=== PATIENT | male | born 1980 | race Caucasian/White ===

== ENCOUNTER → 2017-01-04 | Outpatient (CLI) | payer BC, OTHER ==
[2017-01-04 18:20] LABS: BLOOD UREA NITROGEN 13 mg/dl (7-18); BUN/CREATININE RATIO 13.3 (10-20); CALCIUM 8.8 mg/dl (8.5-10.1); CARBON DIOXIDE 25 mmol/L (21-32); CHLORIDE 106 mmol/L (98-107); CHOLESTEROL 232 mg/dl (0-200); CREATININE 0.96 mg/dl (0.60-1.40); GLUCOSE 99 mg/dl (70-99); POTASSIUM 3.7 mmol/L (3.5-5.1); SODIUM 139 mmol/L (136-145)
[2017-01-04 18:23] LABS: CHOLESTEROL/HDL RATIO 6.4; HDL CHOLESTEROL 36 mg/dl; TRIGLYCERIDES 517 mg/dl (0-150)
== END | disposition home or self-care (01) ==
LOC: C.LABPVFM 13:24
PROVIDERS: ATTEND Family Medicine
DX: E55.9 Vitamin D deficiency, unspecified (principal); E78.2 Mixed hyperlipidemia

== ENCOUNTER → 2017-03-16 | Outpatient (CLI) | payer BC | END | disposition home or self-care (01) | LOC: C.LABPVFM 10:26 | PROVIDERS: ATTEND Nurse Practitioner Family | DX: E55.9 Vitamin D deficiency, unspecified (principal) ==

== ENCOUNTER 2017-06-10 13:36 | Emergency (ER) | payer BC, OTHER ==
[~2017-06-10] VITALS: Ht 170.2 cm; Wt 107.0 kg
[2017-06-10 13:51] VITALS: TEMP 36.8; Ht 170.2 cm; Wt 107.0 kg
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
[2017-06-10] MEDS ORDERED: VNTHFA/IN INH (14:36)
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
[2017-06-10] MEDS ORDERED: CYCL5TAB PO (15:14)
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
[2017-06-10 15:23] VITALS: BP 147/73; PULSE 83; O2SAT 95
== END 2017-06-10 15:21 | disposition home or self-care (01) ==
LOC: C.EDB 13:37
DX: S09.90XA Unspecified injury of head, initial encounter (principal); S40.012A Contusion of left shoulder, initial encounter; V47.5XXA Car driver injured in collision with fixed or stationary object in traffic accident, initial encounter; Y92.410 Unspecified street and highway as the place of occurrence of the external cause; J45.909 Unspecified asthma, uncomplicated; E78.5 Hyperlipidemia, unspecified; F32.9 Major depressive disorder, single episode, unspecified; F17.210 Nicotine dependence, cigarettes, uncomplicated; F17.220 Nicotine dependence, chewing tobacco, uncomplicated

== ENCOUNTER → 2017-11-02 | Outpatient (CLI) | payer BC ==
[~2017-11-02] MED LIST: VNTHFA/IN INH
--- NOTE | 2017-11-02 16:18 | DIAGNOSTIC IMAGING REPORT ---
LEFT SHOULDER 3 VIEWS HISTORY: Left shoulder painleft COMPARISON: Left shoulder 06/10/2017. FINDINGS: There is no fracture or dislocation. Soft tissues are unremarkable. The left clavicle is intact. The AC joint is well aligned. IMPRESSION: Unremarkable left shoulder. Electronically signed by: Nelson Casey M.D. 11/02/2017 4:17 PM Dictated Date/Time: 11/02/2017 4:16 PM
== END | disposition home or self-care (01) ==
LOC: C.RADPV 16:03
PROVIDERS: ATTEND Family Medicine
DX: M25.512 Pain in left shoulder (principal)

== ENCOUNTER 2020-03-12 09:11 | Inpatient (IN) ==
[2020-03-12] MEDS ORDERED: ALBUTEROL HFA 8 GM INHALER INH ONE (09:35)
[2020-03-12] MEDS ORDERED: methylPREDNISolone 125 MG/2 ML VIAL IV STA (09:35)
[2020-03-12] MEDS ORDERED: ONDANSETRON INJ 2 MG/ML 2 ML VIAL IV STA (09:35)
--- NOTE | 2020-03-12 09:40 | Emergency Department Note ---
Impression & Plan Hypoxia, Acute bronchitis, Tachycardia, Exacerbation of asthma ED Provider Note NAME: AIDEN STUBBS AGE: 39 SEX: M : 1980 ARRIVES VIA: Walk-In INFORMANT: [Patient] ED PROVIDER(S): [Allen Flaherty MD] CHIEF COMPLAINT: Cough and shortness of breath HISTORY OF PRESENT ILLNESS: The patient is a 39-year-old male who presents to the ED with 2 to 3 days of cough and shortness of breath. He has had 2 days of vomiting. No diarrhea. No loss of taste or smell. No fever, no sore throat. No known coronavirus exposures. 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 The patient does have asthma, he is out of his albuterol inhaler. He states his cough is sometimes productive, he hears himself wheeze when he coughs. REVIEW OF SYSTEMS: See HPI for pertinent positives and negatives. A total of ten systems were reviewed and were otherwise negative. PMHx/PSHx: See Below SOCIAL HISTORY: See Below. PHYSICAL EXAM: GENERAL: Patient is in no acute distress. HEENT: No acute trauma, normocephalic atraumatic, mucous membranes moist, no nasal congestion, no scleral icterus. No throat erythema or exudate. NECK: No stridor, no adenopathy, no meningismus, trachea is midline. LUNGS: He does have a productive cough noted. He wheezes when he coughs. Lungs are otherwise clear and equal bilaterally. HEART: Tachycardic, regular rhythm. No murmurs. ABDOMEN: Soft, nontender, bowel sounds positive, no hernias, no peritonitis. EXTREMITIES: No cyanosis or edema, full range of motion of all the joints with out pain or difficulty, no signs for acute trauma. NEUROLOGIC: Oriented x 3, no acute motor or sensory deficits, no focal weakness. SKIN: No rash, no jaundice, no diaphoresis. DIFFERENTIAL DIAGNOSIS: Sepsis, UTI, pneumonia, metabolic, electrolyte abnormalities, bronchitis, co ronavirus, influenza, asthma exacerbation, cardiac sources, intracerebral event, toxicologic, neurologic, as well as other pathologies. EMERGENCY DEPARTMENT COURSE/PROCEDURES: ECG: Indication was shortness of breath. The ECG shows a sinus tachycardia with a rate of 111. There is no ST elevation, no PVCs. The QTc is 437. Continuous Cardiac Monitoring: An order was placed for continuous cardiac monitoring. The monitor shows a rate of 104 with sinus tachycardia. Critical Care Note: I have personally spent 35 minutes of critical care time in the direct management of this patient. This includes bedside care, interpretation of diagnostic studies, and testing, discussion with consultants, patient, and family members, and other required patient management activities. This 35 minutes is in excess of all separately billable procedures. MEDICAL DECISION MAKING: There is a moderate leukocytosis at 17,000, this could be consistent with infection. There is no anemia. There is a normal platelet count. No coagulopathy. No significant electrolyte abnormality or kidney failure. No worrisome liver enzyme elevation. ECG shows a sinus tachycardia no acute ischemia. Cardiac enzyme testing x1 is not consistent with acute cardiac injury. Influenza and Covid testing is negative. Chest film shows some generalized parenchymal congestion, no focal pneumonia. On my exam, patient was wheezing, he was tachycardic. The patient received albuterol via MDI. He was eventually given a DuoNeb once his Covid returned negative. He was given 1.5 L of IV saline, 4 mg of IV Zofr an. He received 2 g of IV ceftriaxone as empiric antibiotic coverage. He was given 125 mg of IV Solu-Medrol. Patient was noted to be hypoxic with a sat around 85%. He was placed on 2 L of nasal cannula oxygen. The patient's vital signs have improved since treatment in our ED. Given the hypoxia, given the leukocytosis, his tachycardia and wheezing, I do think a hospital stay is warranted. The patient appears to have an acute bronchitis/early pneumonia with a flare of his asthma. I did speak with the patient about his findings, case management was contacted. The on-call hospitalist has been consulted. Past Med/Surg History Medical History Allergies Asthma History of perforated ear drum Surgical History (Updated 06/22/19 @ 15:28 by YOAN Leon) Bilateral patent pressure equalization tubes Family History (Updated 03/12/20 @ 12:00 by Ricci Madera) Grandfather (Paternal) Aortic aneurysm Mother , accidental overdose Rheumatoid arthritis Denies family history of Ovarian cancer Prostate cancer Myocardial infarction Breast cancer Colorectal cancer Asthma Social History Smoking Status: Current every day smoker Age Started Using Tobacco: 7; packs per day: 0; Years Smoked: 32; Cigarettes Per Day: 5; Second Hand Exposure: Yes; Hx Alcohol Use: Yes Alcohol type: beer Hx Substance Use: No Preferred Language: Luxembourgish Visual Impairment: No Limitations Hearing Ability: Normal marital status: Single Current Living Situation: Significant Other 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 How many Children do You have: 0 Feels Safe at Home: Yes Dental Care, Regularly: No Physical Activity Frequency: Daily Seatbelt Use: never Sunscreen Use: No Allergies Allergies Allergy/AdvReac Type Severity Reaction Status Date / Time codeine Allergy Intermediate HIVES Unverified 03/12/20 09:50 Home Meds Previous Rx's Medication Instructions Recorded albuterol sulfate 90 mcg/actuation 2 puffs INH QID PRN #6.7 gm 06/22/19 aerosol inhaler Results & Data (ED) Vital Signs Vital Signs - 24 hr 03/12/20 09:23 03/12/20 09:56 03/12/20 09:57 Temperature 37.1 C Temperature Source Oral Pulse Rate 125 H 108 H Pulse Rate [Apical] Pulse Rate from SpO2 Sensor 108 H Respiratory Rate 16 Respiratory Effort / Characteristics Non-Labored Blood Pressure 164/102 H 115/70 Blood Pressure Mean 122 85 Pulse Oximetry 96 95 95 Oxygen Delivery Method Room Air Room Air Oxygen Flow Rate Sepsis Recent Fever Within 48 Hours No Sepsis New/Unexplained Change in Mental Status N/A Sepsis Action Taken by Nursing No Action Required 03/12/20 09:59 03/12/20 10:00 03/12/20 10:30 Temperature Temperature Source Pulse Rate 105 H 103 H 110 H Pulse Rate [Apical] Pulse Rate from SpO2 Sensor 106 H 101 H 111 H Respiratory Rate 15 21 Respiratory Effort / Characteristics Blood Pressure 113/73 102/82 Blood Pressure Mean 83 88 Pulse Oximetry 94 96 93 Oxygen Delivery Method Oxygen Flow Rate Sepsis Recent Fever Within 48 Hours Sepsis New/Unexplained Change in Mental Status Sepsis Action Taken by Nursing 03/12/20 10:55 03/12/20 11:00 03/12/20 11:10 Temperature Temperature Source Pulse Rate Pulse Rate [Apical] Pulse Rate from SpO2 Sensor 104 H Respiratory Rate Respiratory Effort / Characteristics Blood Pressure 132/64 Blood Pressure Mean 76 Pulse Oximetry 85 L 88 L 96 Oxygen Delivery Method Room Air Nasal Cannula Oxygen Flow Rate 2 Sepsis Recent Fever Within 48 Hours Sepsis New/Unexplained Change in Mental Status Sepsis Action Taken by Nursing 03/12/20 11:21 Temperature Temperature Source Pulse Rate Pulse Rate [Apical] 105 H Pulse Rate from SpO2 Sensor Respiratory Rate 17 Respiratory Effort / Characteristics Non-Labored Spontaneous Blood Pressure Blood Pressure Mean Pulse Oximetry 95 Oxygen Delivery Method Nasal Cannula Oxygen Flow Rate 2 Sepsis Recent Fever Within 48 Hours Sepsis New/Unexplained Change in Mental Status Sepsis Action Taken by [facility] Medications Current Medication List: was personally reviewed by me Laboratory Data Attestation: I reviewed the patient's lab results. Result diagrams: 03/12/20 09:59 03/12/20 09:59 Lab Results 03/12/20 03/12/20 03/12/20 Range/Units 09:59 09:59 09:59 WBC 17.44 H (4.8-10.8) K/uL RBC 4.88 (4.7-6.1) M/uL Hgb 14.7 (14.0-18.0) g/dL Hct 43.7 (42-52) % MCV 89.5 (80-100) fL MCH 30.1 (25-34) pg MCHC 33.6 (32-36) g/dL RDW Std Deviation 45.8 (36.4-46.3) fL RDW Coeff of Sully 14.0 (11.5-14.5) % Plt Count 277 (130-400) K/uL MPV 10.7 H (7.4-10.4) fL Immature Gran % (Auto) 0.5 % Neut % (Auto) 69.3 % Lymph % (Auto) 18.7 % [place] % (Auto) 7.6 % Eos % (Auto) 3.6 % Baso % (Auto) 0.3 % Neut # (Auto) 12.10 H (1.4-6.5) K/uL Lymph # (Auto) 3.26 (1.2-3.4) K/uL [place] # (Auto) 1.32 H (0.11-0.59) K/uL Eos # (Auto) 0.62 H (0-0.5) K/uL Baso # (Auto) 0.05 (0-0.2) K/uL Immature Gran # (Auto) 0.09 H (0.00-0.02) K/uL PT 10.0 (9.0-12.0) Seconds INR 0.9 (0.9-1.1) APTT 28.2 (21.0-31.0) Seconds PTT Ratio 1.0 Sodium 138 (136-145) mmol/L Potassium 4.1 (3.5-5.1) mmol/L Chloride 104 (98-107) mmol/L Carbon Dioxide 25 (21-32) mmol/L Anion Gap 9.0 (3-11) BUN 17 (7-18) mg/dl Creatinine 0.92 (0.6-1.4) mg/dl Est Cr Clr Drug Dosing 125.1 ml/min Est GFR ( Amer) 120.2 Est GFR (Non-Af Amer) 103.7 BUN/Creatinine Ratio 18.3 (10-20) Glucose 120 H (70-99) mg/dl Lactate (0.4-2.0) mmol/L Calcium 9.6 (8.5-10.1) mg/dl Magnesium 2.1 (1.8-2.4) mg/dl Total Bilirubin 0.2 (0.2-1) mg/dl AST 47 H (15-37) U/L ALT 69 (12-78) U/L Alkaline Phosphatase 82 (45-117) U/L Troponin I < 0.015 (0-0.045) ng/ml Total Protein 7.4 (6.4-8.2) gm/dl Albumin 3.5 (3.4-5.0) gm/dl Globulin 3.9 (2.5-4.0) gm/dl Albumin/Globulin Ratio 0.9 (0.9-2) Procalcitonin (0-0.5) ng/ml Specimen Hemolysis COVID-19 Eval Order Influ A Molecular Assay (Negative) Influ B Molecular Assay (Negative) SARS-CoV-2, RNA, NAAT (NEGATIVE) 03/12/20 03/12/20 03/12/20 Range/Units 09:59 09:59 09:59 WBC (4.8-10.8) K/uL RBC (4.7-6.1) M/uL Hgb (14.0-18.0) g/dL Hct (42-52) % MCV (80-100) fL MCH (25-34) pg MCHC (32-36) g/dL RDW Std Deviation (36.4-46.3) fL RDW Coeff of Sully (11.5-14.5) % Plt Count (130-400) K/uL MPV (7.4-10.4) fL Immature Gran % (Auto) % Neut % (Auto) % Lymph % (Auto) % [place] % (Auto) % Eos % (Auto) % Baso % (Auto) % Neut # (Auto) (1.4-6.5) K/uL Lymph # (Auto) (1.2-3.4) K/uL [place] # (Auto) (0.11-0.59) K/uL Eos # (Auto) (0-0.5) K/uL Baso # (Auto) (0-0.2) K/uL Immature Gran # (Auto) (0.00-0.02) K/uL PT (9.0-12.0) Seconds INR (0.9-1.1) APTT (21.0-31.0) Seconds PTT Ratio Sodium (136-145) mmol/L Potassium (3.5-5.1) mmol/L Chloride (98-107) mmol/L Carbon Dioxide (21-32) mmol/L Anion Gap (3-11) BUN (7-18) mg/dl Creatinine (0.6-1.4) mg/dl Est Cr Clr Drug Dosing ml/min Est GFR ( Amer) Est GFR (Non-Af Amer) BUN/Creatinine Ratio (10-20) Glucose (70-99) mg/dl Lactate (0.4-2.0) mmol/L Calcium (8.5-10.1) mg/dl Magnesium (1.8-2.4) mg/dl Total Bilirubin (0.2-1) mg/dl AST (15-37) U/L ALT (12-78) U/L Alkaline Phosphatase (45-117) U/L Troponin I (0-0.045) ng/ml Total Protein (6.4-8.2) gm/dl Albumin (3.4-5.0) gm/dl Globulin (2.5-4.0) gm/dl Albumin/Globulin Ratio (0.9-2) Procalcitonin < 0.05 (0-0.5) ng/ml Specimen Hemolysis COVID-19 Eval Order Influ A Molecular Assay Negative (Negative) Influ B Molecular Assay Negative (Negative) SARS-CoV-2, RNA, NAAT (NEGATIVE) 03/12/20 03/12/20 Range/Units 09:59 09:59 WBC (4.8-10.8) K/uL RBC (4.7-6.1) M/uL Hgb (14.0-18.0) g/dL Hct (42-52) % MCV (80-100) fL MCH (25-34) pg MCHC (32-36) g/dL RDW Std Deviation (36.4-46.3) fL RDW Coeff of Sully (11.5-14.5) % Plt Count (130-400) K/uL MPV (7.4-10.4) fL Immature Gran % (Auto) % Neut % (Auto) % Lymph % (Auto) % [place] % (Auto) % Eos % (Auto) % Baso % (Auto) % Neut # (Auto) (1.4-6.5) K/uL Lymph # (Auto) (1.2-3.4) K/uL [place] # (Auto) (0.11-0.59) K/uL Eos # (Auto) (0-0.5) K/uL Baso # (Auto) (0-0.2) K/uL Immature Gran # (Auto) (0.00-0.02) K/uL PT (9.0-12.0) Seconds INR (0.9-1.1) APTT (21.0-31.0) Seconds PTT Ratio Sodium (136-145) mmol/L Potassium (3.5-5.1) mmol/L Chloride (98-107) mmol/L Carbon Dioxide (21-32) mmol/L Anion Gap (3-11) BUN (7-18) mg/dl Creatinine (0.6-1.4) mg/dl Est Cr Clr Drug Dosing ml/min Est GFR ( Amer) Est GFR (Non-Af Amer) BUN/Creatinine Ratio (10-20) Glucose (70-99) mg/dl Lactate (0.4-2.0) mmol/L Calcium (8.5-10.1) mg/dl Magnesium (1.8-2.4) mg/dl Total Bilirubin (0.2-1) mg/dl AST (15-37) U/L ALT (12-78) U/L Alkaline Phosphatase (45-117) U/L Troponin I (0-0.045) ng/ml Total Protein (6.4-8.2) gm/dl Albumin (3.4-5.0) gm/dl Globulin (2.5-4.0) gm/dl Albumin/Globulin Ratio (0.9-2) Procalcitonin (0-0.5) ng/ml Specimen Hemolysis COVID-19 Eval [facility] Influ A Molecular Assay (Negative) Influ B Molecular Assay (Negative) SARS-CoV-2, RNA, NAAT NEGATIVE (NEGATIVE) Administered Medications Discontinued Medications Albuterol (Albuterol Hfa 8 Gm Inhaler) 4 puffs INH NOW ONE Stop: 03/12/20 09:36 Last Admin: 03/12/20 10:04 Dose: 4 puffs Documented by: [id number] Albuterol (Albut/Ipratrop 3mg/0.5mg Neb 3 Ml Vial) 3 ml NEB NOW STA Stop: 03/12/20 11:08 Last Admin: 03/12/20 11:19 Dose: 3 ml Documented by: [id number] Sodium Chloride (Nss 1000ml) 1,000 mls @ 999 mls/hr IV .Q1H1M [email or web address] Stop: 03/12/20 10:45 Last Infusion: 03/12/20 11:11 Dose: 0 mls/hr Documented by: [id number] Admin: 03/12/20 10:05 Dose: 999 mls/hr Documented by: [id number] Methylprednisolone (Methylprednisolone 125 Mg/2 Ml Vial) 125 mg IV NOW STA Stop: 03/12/20 09:36 Last Admin: 03/12/20 10:05 Dose: 125 mg Documented by: [id number] Ondansetron HCl (Ondansetron Inj 2 Mg/Ml 2 Ml Vial) 4 mg IV NOW STA Stop: 03/12/20 09:36 Last Admin: 03/12/20 10:05 Dose: 4 mg Documented by: [id number] Imaging Data Radiologist's Impression: XR chest 1V portable CLINICAL HISTORY: SEPSIS COMPARISON STUDY: 06/28/2019 FINDINGS: The heart is borderline enlarged. There is trace fluid within the minor fissure. There is subtle interstitial prominence. This could be secondary to mild pulmonary vascular congestion or interstitial inflammatory process. Clinical and radiographic follow-up is recommended.[ IMPRESSION: 1. Subtle elevation of the interstitium. This could be secondary to mild pulmonary vascular congestion or interstitial inflammatory process. Clinical and radiographic follow-up is recommended Discharge Plan Visit Data Chief Complaint: Cough Stated Complaint: COUGHING,VOMITING,SOB ED Provider: Allen Flaherty Discharge Problem: Hypoxia, Acute bronchitis, Tachycardia, Exacerbation of asthma Patient Disposition: Admitted As Inpatient Condition: Fair Forms Stand Alone Forms: [facility] Emergency Department, Important Visit Information Prescriptions Prescriptions: No Action albuterol sulfate [Ventolin HFA] 90 mcg/actuation HFA aerosol inhaler 2 puffs INH QID PRN (Reason: shortness of breath or wheezing) Qty: 6.7 RF: 2 Referrals Referrals: Meagan Taylor CRNP [Primary Care Provider] - Discharge Problem: Acute bronchitis Qualifiers: Bronchitis organism: unspecified organism Qualified Code(s): J20.9 - Acute bronchitis, unspecified Exacerbation of asthma Qualifiers: Asthma severity: moderate Asthma persistence: unspecified Qualified Code(s): J45.901 - Unspecified asthma with (acute) exacerbation
[2020-03-12] MEDS ORDERED: SODIUM CHLORIDE 0.9% 1000ML 1,000 ML IV SCH (09:45)
[2020-03-12 10:29] LABS: Basophils # (auto) 0.05 K/uL (0-0.2); Basophils % (auto) 0.3 %; Eosinophils # (auto) 0.62 K/uL (0-0.5); Eosinophils % (auto) 3.6 %; Hematocrit (blood only) 43.7 % (42-52); Hemoglobin 14.7 g/dL (14.0-18.0); Immature Granulocytes # (auto) 0.09 K/uL (0.00-0.02); Immature Granulocytes % (auto) 0.5 %; Lymphocytes # (auto) 3.26 K/uL (1.2-3.4); Lymphocytes % (auto) 18.7 %; Mean Corpuscular Hemoglobin 30.1 pg (25-34); Mean Corpuscular Hgb Conc 33.6 g/dL (32-36); Mean Corpuscular Volume 89.5 fL (80-100); Mean Platelet Volume 10.7 fL (7.4-10.4); Monocytes # (auto) 1.32 K/uL (0.11-0.59); Monocytes % (auto) 7.6 %; Neutrophils % (auto) 69.3 %; Platelet Count 277 K/uL (130-400); RDW Standard Deviation 45.8 fL (36.4-46.3); Red Blood Count 4.88 M/uL (4.7-6.1); White Blood Count 17.44 K/uL (4.8-10.8)
--- NOTE | 2020-03-12 10:32 | XRay Report ---
XR chest 1V portable CLINICAL HISTORY: SEPSIS COMPARISON STUDY: 06/28/2019 FINDINGS: The heart is borderline enlarged. There is trace fluid within the minor fissure. There is s ubtle interstitial prominence. This could be secondary to mild pulmonary vascular congestion or inter stitial inflammatory process. Clinical and radiographic follow-up is recommended.[ IMPRESSION: 1. Subtle elevation of the interstitium. This could be secondary to mild pulmonary vascular congestio n or interstitial inflammatory process. Clinical and radiographic follow-up is recommended ACT 112: Negative or not required by law. Electronically signed by: Janes Nguyen M.D. 03/12/2020 10:30 AM
[2020-03-12 10:49] LABS: Alanine Aminotransferase 69 U/L (12-78); Albumin Level 3.5 gm/dl (3.4-5.0); Aspartate Aminotransferase 47 U/L (15-37); BUN Creatinine Ratio 18.3 (10-20); Blood Urea Nitrogen 17 mg/dl (7-18); Calcium 9.6 mg/dl (8.5-10.1); Carbon Dioxide 25 mmol/L (21-32); Chloride 104 mmol/L (98-107); Creatinine Clr Calc Pharmacy 125.1 ml/min; Est GFR (African American) 120.2; Est GFR (Non-African American) 103.7; Glucose 120 mg/dl (70-99); Magnesium 2.1 mg/dl (1.8-2.4); Potassium 4.1 mmol/L (3.5-5.1); Sodium 138 mmol/L (136-145)
[2020-03-12 10:51] LABS: INR 0.9 (0.9-1.1); Partial Thromboplastin Time 28.2 Seconds (21.0-31.0)
[2020-03-12 10:53] LABS: Influenza A virus by PCR Negative (Negative); Influenza B virus by PCR Negative (Negative)
[2020-03-12 10:56] LABS: Albumin Globulin Ratio 0.9 (0.9-2); Alkaline Phosphatase 82 U/L (45-117); Bilirubin,Total 0.2 mg/dl (0.2-1); Globulin 3.9 gm/dl (2.5-4.0); Total Protein 7.4 gm/dl (6.4-8.2); Troponin I < 0.015 ng/ml (0-0.045)
[2020-03-12] MEDS ORDERED: cefTRIAXone SODIUM 2,000 MG/70 ML BAG IV STA (11:07)
[2020-03-12] MEDS ORDERED: ALBUT/IPRATROP 3MG/0.5MG NEB 3 ML VIAL NEB STA (11:07)
[2020-03-12] MEDS ORDERED: SODIUM CHLORIDE 0.9% 1000ML 500 ML IV ONE (11:08)
--- NOTE | 2020-03-12 12:04 | History & Physical Report ---
Date of Service March 12, 2020 Assessment & Plan (1) Acute respiratory failure with hypoxia: 2nd asthma exacerbation. ?interstitial pneumonia on cxr? Will obtain chest CT given the degree of hypoxic, abnormal cxr, ?supraclavicular lymph node on right, etc. Rx for asthma as below. (2) Asthma with exacerbation: Long-standing asthma. Certainly could have early-onset COPD given his long-standing tobacco use. Either way will Rx with IV solumedrol, scheduled bronchodilators, pulmonary toilet, etc. Defer on additional antibiotics unless chest CT shows defined pneumonia. O2 as needed to maintain sats >92%. Needs to quit smoking and ideally needs outpatient PFTs/pulm f/u. (3) Morbid obesity: BMI 38 (4) Tobacco use: diet counselor to quit nicoderm 7mg/24 hr patch (5) Elevated AST (SGOT): could be 2nd to fatty liver ALT wnl simply repeat at later date (6) DVT prophylaxis: lovenox 40mg daily History of Present Illness Chief Complaint: cough, wheezing, shortness of breath Primary Care Provider: TOMY Welch 39yo male with history of long-standing asthma dating back to childhood presents with about 24 hours of worsening cough mildly productive of sputum, wheezing, and shortness of breath. Symptoms started after work yesterday. 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 NO fevers, chills, loss of taste or smell, anorexia, chest pain, abd pain or diarrhea. No body aches. No headache. Did have an episode of coughing this am that led to vomiting. Lives with his girlfriend and 2 other roommates in [place] but all have been well. No travel. Ran out of albuterol thus did not take any overnight. He received albuterol in the ER with relief of symptoms. Also received ceftriaxone and steroids. Allergies Allergy/AdvReac Type Severity Reaction Status Date / Time codeine Allergy Intermediate HIVES Unverified 03/12/20 09:50 Home Medications Medication Instructions Recorded Confirmed Type albuterol sulfate 90 mcg/actuation 2 puffs INH QID PRN #6.7 gm 06/22/19 03/12/20 Rx aerosol inhaler Past Med/Surg History Medical History Allergies Asthma History of perforated ear drum Surgical History (Updated 06/22/19 @ 15:28 by YOAN Leon) Bilateral patent pressure equalization tubes Family History (Updated 03/12/20 @ 12:00 by Ricci Madera) Grandfather (Paternal) Aortic aneurysm Mother , accidental overdose Rheumatoid arthritis Denies family history of Ovarian cancer Prostate cancer Myocardial infarction Breast cancer Colorectal cancer Asthma Social History Smoking Status: Current every day smoker Age Started Using Tobacco: 7; packs per day: 0; Years Smoked: 32; Cigarettes Per Day: 4; Second Hand Exposure: Yes; Do You Dip or Chew Tobacco: Yes; Tobacco Cessation Education Requested by Patient: No Hx Alcohol Use: Yes Alcohol type: hard liquor Hx Substance Use: Yes Last Used Substance: Days (ago) Preferred Language: Comoran Visual Impairment: No Limitations Hearing Ability: Normal Beliefs That Will Affect Care: None marital status: Single Current Living Situation: Other Current Living Situation Comment: Friends 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 How many Children do You have: 0 Feels Safe at Home: Yes Dental Care, Regularly: No Physical Activity Frequency: Daily Seatbelt Use: never Sunscreen Use: No Assistive Devices: None Review of Systems Constitutional: no fever, no chills, no body aches, no fatigue and no anorexia Eyes: no worsening vision Ear, Nose, Mouth, Throat: no ear discharge and no sore throat Respiratory: + cough, + dyspnea and + wheezing Cardiovascular: no chest pain Gastrointestinal: + vomiting; no abdominal pain, no nausea and no diarrhea/loose stools Genitourinary: no dysuria Musculoskeletal: no body aches Integumentary: no rash Neurologic: no generalized weakness Psychiatric: no depression and no anxiety Endocrine: denies diabetes Hematologic / Lymphatic: no easy bruising Physical Exam Constitutional: well developed and well nourished; no acute distress and no altered mental status Eyes: PERRL ENMT: Mouth: + oropharynx abnormality (Mildly erythematous ) Neck: trachea midline, no thyromegaly Respiratory: Auscultation: + crackles (Bibasilar) and + wheezes (Extensive, end-exp, b/l ) Cardiovascular: Rate/Rhythm: regular rate and regular rhythm Heart Sounds: normal S1 and normal S2; no murmur Vessels: posterior tibial pulses present; no JVD Extremities: no edema Gastrointestinal (Abdomen): normal bowel sounds, soft, nontender, no hepatosplenomegaly Musculoskeletal: no cyanosis or clubbing, extremities motor strength 5/5 Skin: no rashes, warm and dry Neurologic: deep tendon reflexes 2+ bilaterally and moves all extremities Psychiatric: A+Ox3, euthymic affect Lymphatic: supraclavicular node on right vs low-positioned cervical chain node on right - not fixed, about 1cm in size Results & Data Results & Data ([facility]) Vital Signs (Past 12 Hours) Vital Signs Temp Pulse Pulse Resp BP Pulse Ox 03/12/20 11:21 105 H 17 95 03/12/20 11:10 96 03/12/20 11:00 132/64 88 L 03/12/20 10:55 85 L 03/12/20 10:30 110 H 102/82 93 03/12/20 10:00 103 H 21 113/73 96 03/12/20 09:59 105 H 15 94 03/12/20 09:57 95 03/12/20 09:56 108 H 115/70 95 03/12/20 09:23 37.1 C 125 H 16 164/102 H 96 Laboratory Results Laboratory Results - last 24 hr 03/12/20 03/12/20 03/12/20 09:59 09:59 09:59 WBC 17.44 H RBC 4.88 Hgb 14.7 Hct 43.7 MCV 89.5 MCH 30.1 MCHC 33.6 RDW Std Deviation 45.8 RDW Coeff of Sully 14.0 Plt Count 277 MPV 10.7 H Immature Gran % (Auto) 0.5 Neut % (Auto) 69.3 Lymph % (Auto) 18.7 Geary % (Auto) 7.6 Eos % (Auto) 3.6 Baso % (Auto) 0.3 Neut # (Auto) 12.10 H Lymph # (Auto) 3.26 Geary # (Auto) 1.32 H Eos # (Auto) 0.62 H Baso # (Auto) 0.05 Immature Gran # (Auto) 0.09 H PT 10.0 INR 0.9 APTT 28.2 PTT Ratio 1.0 Sodium 138 Potassium 4.1 Chloride 104 Carbon Dioxide 25 Anion Gap 9.0 BUN 17 Creatinine 0.92 Est Cr Clr Drug Dosing 125.1 Est GFR ( Amer) 120.2 Est GFR (Non-Af Amer) 103.7 BUN/Creatinine Ratio 18.3 Glucose 120 H Lactate Calcium 9.6 Magnesium 2.1 Total Bilirubin 0.2 AST 47 H ALT 69 Alkaline Phosphatase 82 Troponin I < 0.015 Total Protein 7.4 Albumin 3.5 Globulin 3.9 Albumin/Globulin Ratio 0.9 Procalcitonin Specimen Hemolysis COVID-19 Eval Order Influ A Molecular Assay Influ B Molecular Assay SARS-CoV-2, RNA, NAAT 03/12/20 03/12/20 03/12/20 09:59 09:59 09:59 WBC RBC Hgb Hct MCV MCH MCHC RDW Std Deviation RDW Coeff of Sully Plt Count MPV Immature Gran % (Auto) Neut % (Auto) Lymph % (Auto) Geary % (Auto) Eos % (Auto) Baso % (Auto) Neut # (Auto) Lymph # (Auto) Geary # (Auto) Eos # (Auto) Baso # (Auto) Immature Gran # (Auto) PT INR APTT PTT Ratio Sodium Potassium Chloride Carbon Dioxide Anion Gap BUN Creatinine Est Cr Clr Drug Dosing Est GFR ( Amer) Est GFR (Non-Af Amer) BUN/Creatinine Ratio Glucose Lactate Calcium Magnesium Total Bilirubin AST ALT Alkaline Phosphatase Troponin I Total Protein Albumin Globulin Albumin/Globulin Ratio Procalcitonin < 0.05 Specimen Hemolysis COVID-19 Eval Order Influ A Molecular Assay Negative Influ B Molecular Assay Negative SARS-CoV-2, RNA, NAAT 03/12/20 03/12/20 09:59 09:59 WBC RBC Hgb Hct MCV MCH MCHC RDW Std Deviation RDW Coeff of Sully Plt Count MPV Immature Gran % (Auto) Neut % (Auto) Lymph % (Auto) Geary % (Auto) Eos % (Auto) Baso % (Auto) Neut # (Auto) Lymph # (Auto) Geary # (Auto) Eos # (Auto) Baso # (Auto) Immature Gran # (Auto) PT INR APTT PTT Ratio Sodium Potassium Chloride Carbon Dioxide Anion Gap BUN Creatinine Est Cr Clr Drug Dosing Est GFR ( Amer) Est GFR (Non-Af Amer) BUN/Creatinine Ratio Glucose Lactate Calcium Magnesium Total Bilirubin AST ALT Alkaline Phosphatase Troponin I Total Protein Albumin Globulin Albumin/Globulin Ratio Procalcitonin Specimen Hemolysis COVID-19 Eval [facility] Influ A Molecular Assay Influ B Molecular Assay SARS-CoV-2, RNA, NAAT NEGATIVE Diagnostic Findings cxr: IMPRESSION: 1. Subtle elevation of the interstitium. This could be secondary to mild pulmonary vascular congestion or interstitial inflammatory process. Clinical and radiographic follow-up is recommended Code Status & VTE Plan Code Status full VTE Prophylaxis Plan VTE Prophylaxis will be ordered: Yes PG Care Time/CCT Total # of Minutes Spent Total Time Spent with Patient: Total time spent is greater than 50% in coordination of care (as documented) at patient's floor/unit and/or counseling patient: Coding Level of Care Code 98032 Initial Inpt Care Lvl 2 Diagnoses Acute respiratory failure with hypoxia J96.01 Asthma with exacerbation J45.21 Asthma persistence: intermittent Asthma severity: mild Morbid obesity E66.01 Tobacco use Z72.0 Elevated AST (SGOT) R74.01 DVT prophylaxis Z29.9 (1) Asthma with exacerbation Asthma persistence: intermittent Asthma severity: mild Qualified Code(s): J45.21 - Mild intermittent asthma with (acute) exacerbation
--- NOTE | 2020-03-12 14:15 | Electrocardiogram Report ---
Test Reason : Blood Pressure : / mmHG Vent. Rate : 111 BPM Atrial Rate : 111 BPM P-R Int : 128 ms QRS Dur : 094 ms QT Int : 322 ms P-R-T Axes : 062 070 066 degrees QTc Int : 437 ms Sinus tachycardia Incomplete right bundle branch block Borderline ECG No previous ECGs available Confirmed by Shahriar Caicedo ([id number]) on 03/12/2020 2:14:45 PM Referred By: REFERRED SELF Confirmed By:Aaron Caicedo
[2020-03-12] MEDS ORDERED: OPTIRAY 320 100ml IV ONE (15:20)
--- NOTE | 2020-03-12 15:39 | CT Scan Report ---
CHEST CT WITH CONTRAST CT DOSE: 645.12 mGycm HISTORY: hypoxia, bibasilar rales; eval pneumonia, edema TECHNIQUE: Multiaxial CT images of the chest were performed following the intravenous administration of contrast. A dose lowering technique was utilized adhering to the principles of ALARA. COMPARISON: Chest 03/12/2020. FINDINGS: No pneumothorax. No pleural effusions. The central airways are patent. Mild respiratory mot ion artifact is noted. A few small linear densities at the left lung base favor subsegmental atelecta sis or scarring. There are also small focal linear densities within the periphery of the right upper lobe on image 120 and within the anterior medial aspect of the right upper lobe on image 131. This al so favors atelectasis or scarring. Otherwise, no focal lung consolidations to suggest pneumonia. No e vidence for pulmonary edema. No suspicious lytic or blastic osseous lesions. Hepatic steatosis. The v isualized liver and adrenal glands are unremarkable. Normal esophagus. The heart is normal in size. N o pericardial effusion. The mediastinal vascular structures are within normal limits. No mediastinal or hilar lymphadenopathy. IMPRESSION: 1. A few small linear densities within the right upper lobe and left lung base. This favors atelectas is or scarring. A low-grade pneumonitis is considered less likely but not entirely excluded. 2. Hepatic steatosis. ACT 112: Negative or not required by law. Electronically signed by: Nelson Casey M.D. 03/12/2020 3:38 PM
[2020-03-12] MEDS ORDERED: IPRATROPIUM BROMIDE/ALBUTEROL respimat INH INH SCH (16:16)
[2020-03-12] MEDS ORDERED: ACETAMINOPHEN 325 MG TAB PO PRN (16:16)
[2020-03-12] MEDS ORDERED: ONDANSETRON INJ 2 MG/ML 2 ML VIAL IV PRN (16:16)
[2020-03-12] MEDS: ALBUTEROL HFA 8 GM INHALER INH SCH ×2 (16:34→19:11)
[2020-03-12] MEDS: IPRATROPIUM BROMIDE HFA INHALER INH SCH ×2 (16:34→19:11)
[2020-03-12] MEDS: NICOTINE 7 MG/24 HR TDSY TD SCH (17:37)
[2020-03-12] MEDS: methylPREDNISolone 40 MG in SYRINGE 0 ML IV SCH (17:39)
[2020-03-12] MEDS: guaiFENesin 600 MG TABCR PO SCH ×2 (17:39→21:33)
[2020-03-12] MEDS ORDERED: INFLUENZA ADMINISTRATION CHARGE ONE (21:32)
[2020-03-12] MEDS ORDERED: INFLUENZA VIRUS QUAD VACCINE 0.5 ML SYR IM ONE (21:32)
[2020-03-13] MEDS: methylPREDNISolone 40 MG in SYRINGE 0 ML IV SCH ×2 (00:58→11:50)
--- NOTE | 2020-03-13 07:49 | Hospitalist Progress Note ---
Date of Service March 13, 2020 Assessment & Plan (1) Acute respiratory failure with hypoxia: CT chest 03/12 IMPRESSION: 1. A few small linear densities within the right upper lobe and left lung base. This favors atelectasis or scarring. A low-grade pneumonitis is considered less likely but not entirely excluded. 2. Hepatic steatosis. (2) Asthma with exacerbation: (3) Morbid obesity: (4) Tobacco use: (5) DVT prophylaxis: Admission and Anticipated Discharge Date Admission Date: March 12, 2020 Results & Data Results & Data ([facility]) Vital Signs (Past 12 Hours) Vital Signs Temp Pulse Pulse Resp BP Pulse Ox 03/13/20 07:32 90 03/13/20 07:14 97.9 F 105 H 18 131/72 95 03/13/20 03:43 97.5 F L 105 H 17 129/69 94 03/13/20 00:15 117 H 03/13/20 00:06 99.3 F 111 H 15 133/75 94 03/12/20 23:00 98.4 F 112 H 18 112/52 L 93 PG Care Time/CCT Total # of Minutes Spent Total Time Spent with Patient: Total time spent is greater than 50% in coordinat ion of care (as documented) at patient's floor/unit and/or counseling patient: Coding Diagnoses Acute respiratory failure with hypoxia J96.01 Asthma with exacerbation J45.21 Asthma severity: mild Asthma persistence: intermittent Morbid obesity E66.01 Tobacco use Z72.0 DVT prophylaxis Z29.9 (1) Asthma with exacerbation Asthma severity: mild Asthma persistence: intermittent Qualified Code(s): J45.21 - Mild intermittent asthma with (acute) exacerbation
[2020-03-13] MEDS: NICOTINE 7 MG/24 HR TDSY TD SCH (07:56)
[2020-03-13] MEDS: guaiFENesin 600 MG TABCR PO SCH (07:56)
[2020-03-13] MEDS: IPRATROPIUM BROMIDE HFA INHALER INH SCH ×2 (08:57→10:57)
[2020-03-13] MEDS: ALBUTEROL HFA 8 GM INHALER INH SCH ×2 (08:58→10:58)
[2020-03-13] MEDS ORDERED: ENOXAPARIN INJ 40 MG/0.4 ML SYR SQ SCH (09:00)
[2020-03-13] MEDS ORDERED: FAMOTIDINE 40 MG TABLET PO SCH (09:00)
--- NOTE | 2020-03-24 07:24 | Discharge Summary ---
Date of Service March 13, 2020 Admission HPI Per Admitting Provider 39yo male with history of long-standing asthma dating back to childhood presents with about 24 hours of worsening cough mildly productive of sputum, wheezing, and shortness of breath. Symptoms started after work yesterday. 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 NO fevers, chills, loss of taste or smell, anorexia, chest pain, abd pain or diarrhea. No body aches. No headache. Did have an episode of coughing this am that led to vomiting. Lives with his girlfriend and 2 other roommates in [place] but all have been well. No travel. Ran out of albuterol thus did not take any overnight. He received albuterol in the ER with relief of symptoms. Also received ceftriaxone and steroids. Principal Diagnosis asthma exacerbation Discharge Exam The patient appeared well Vital signs as documented. Lungs are clear to auscultation and appear unlabored Cardiac exam, Rhythm is regular.. No murmurs, rubs or gallops. Abdominal exam reveals normal bowel sounds, soft non tender, no masses Extremities are nonedematous and both pedal pulses are normal. Neurologic exam is alert and oriented, no focal loss of strength or sensation Skin is without bruises or rashes Psychologically is without concerns for anxiety or depression. Discharge Data Allergies Allergy/AdvReac Type Severity Reaction Status Date / Time codeine Allergy Intermediate HIVES Unverified 03/12/20 09:50 Consultations 03/12/20 11:26 ED Decision to Admit Stat Ordered Studies 03/12/20 12:13 CT chest w con Routine Hospital Course (1) Acute respiratory failure with hypoxia: 2nd asthma exacerbation. Ct chest 03/12/20. IMPRESSION: 1. A few small linear densities within the right upper lobe and left lung base. This favors atelectasis or scarring. A low-grade pneumonitis is considered less likely but not entirely excluded. 2. Hepatic steatosis. (2) Asthma with exacerbation: Long-standing asthma. Certainly could have early-onset COPD given his long-standing tobacco use. Either way will Rx with IV solumedrol, scheduled bronchodilators, pulmonary toilet, etc. Defer on additional antibiotics . Needs to quit smoking and ideally needs outpatient PFTs/pulm f/u. (3) Morbid obesity: BMI 38 (4) Tobacco use: addiction treatment counselor to quit nicoderm 7mg/24 hr patch (5) Elevated AST (SGOT): could be 2nd to fatty liver ALT wnl simply repeat at later date (6) DVT prophylaxis: lovenox 40mg daily Total Time Total Time Spent Total Time Spent (In Minutes): It required greater than 30 minutes to prepare this patient for discharge Discharge Plan Discharge Items Patient Disposition: Home - Self-Care Reason For Visit: ASTHMA W/ EXACERBATION Discharge Diagnosis: asthma exacerbation Condition on Discharge: Fair Activity: Per Instructions section Activity Comment: off work until 03/17, may return 03/17 Non-emergency contact: Primary Care Provider Call non-emergency contact if: you have any medication questions and your symptoms worsen Follow-up/Referrals: Scottie Paulino MD [Resident] - 03/21/20 9:30 am (We were able to get you an appt with [facility]. You are scheduled with Dr. Walton on Tuesday at 0930. Please arrive 15 minutes prior to your appt, bring your ID and Insurance Card with you. It is important that you keep this appt, if it does not fit your schedule please call [phone] to reschedule. Your appt is at the building in front if the hospital. [address] [place]) Diet: Regular Addtl Attending Provider Instructions: restaand recover please stop smoking Pending Studies at Discharge: No Stand-Alone Forms: [facility] [facility], Work/School Release (Inpt), Smoking Cessation Medications and DC Order Prescriptions: New prednisone 10 mg tablet 40 mg PO DAILY Qty: 16 RF: 0 Combivent Respimat 20-100 mcg/actuation mist 1 puff inhalation QID Qty: 4 RF: 0 Discontinued albuterol sulfate [Ventolin HFA] 90 mcg/actuation HFA aerosol inhaler 2 puffs INH QID PRN (Reason: shortness of breath or wheezing) Qty: 6.7 RF: 2 Discharge Orders: Discharge Order (Routine); Ordered 03/13/20 Ordered By: Michael Peterson Admission Data Admit Date/Time: 03/12/20 12:13 Attending Provider: Michael Peterson Admit Provider: Ricci Madera Primary Care Provider: Meagan Taylor Other Providers: Ricci Madera Other Interventions: Discharge Summary Assessment (RN) Last Done: 03/13/20 11:47 Coding Level of Care Code D/C Day Management >30 mins Diagnoses Acute respiratory failure with hypoxia J96.01 Asthma with exacerbation J45.21 Asthma severity: mild Asthma persistence: intermittent Morbid obesity E66.01 Tobacco use Z72.0 Elevated AST (SGOT) R74.01 DVT prophylaxis Z29.9
== END 2020-03-13 14:43 | disposition home or self-care (01) | DRG 202 ==
LOC: ED 09:11 → SUATTDRO 12:13 → 2W 12:13